=== PATIENT | female | born 1990 | race Caucasian/White ===

== ENCOUNTER → 2016-11-02 | Outpatient (CLI) | payer BC | END | disposition home or self-care (01) | LOC: C.PAPS 16:29 | PROVIDERS: ATTEND Obstetrics & Gynecology | DX: Z01.419 Encounter for gynecological examination (general) (routine) without abnormal findings (principal) ==

== ENCOUNTER 2019-02-16 23:01 | Inpatient (IN) ==
[2019-02-16] MEDS ORDERED: PENICILLIN G POTASSIUM 6 MU in DEXTROSE 5% 250 ML IV STA (23:55)
[2019-02-16] MEDS ORDERED: OXYTOCIN 30 UNITS/500 ML BAG IV PRN (23:55)
--- NOTE | 2019-02-16 23:58 | History & Physical Report ---
Date of Service February 16, 2019 Patient presents in active labor and on arrival states she is leaking fluid contractions are 7-8 out of 10 and are every 4 to 5 minutes apart this is her first baby she is approximately 39 weeks she is group B strep positive otherwise uncomplicated Assessment & Plan (1) Normal labor and delivery: Admit will assume membranes just ruptured recently started on penicillin History of Present Illness Primary Care Provider: NO PCP Allergies Allergy/AdvReac Type Severity Reaction Status Date / Time No Known Allergies Allergy Verified 02/16/19 23:18 Home Medications Home Medications Medication Instructions Recorded Confirmed Type PNV cmb#95-ferrous fumarate-FA 1 tab PO DAILY 02/16/19 02/16/19 History [] Patient History Social History Communication Ability: Effective Patented Hogs[employer]er Required: Yes Beliefs That Will Affect Care: None marital status: Current Living Situation: Spouse Other Information That Helps Us Care for You: No Feels Safe at Home: Yes Safety Concerns: Feels Safe At This Time Smoking Status: Never smoker Hx Alcohol Use: No Hx Substance Use: No Physical Exam Constitutional: WD/WN, vitals as above Respiratory: normal respiratory effort, lungs clear to auscultation Cardiovascular: RRR, no murmur, no edema Genitourinary: OB Exam Abdomen: + vertex Manual OB Exam: + cervical dilation 4 cm, + cervical effacement 90% and + station -2 Copious fluid in the vagina nitrazine positive Results & Data Vital Signs (Past 12 Hours) Vital Signs Pulse BP 02/16/19 23:14 75 130/72
[2019-02-17] MEDS: LACTATED RINGER'S 1,000 ML IV PRN ×3 (00:16→08:09)
[2019-02-17 00:20] LABS: Hematocrit (blood only) 40.4 % (37-47); Hemoglobin 14.1 g/dL (12.0-16.0); Mean Corpuscular Hgb Conc 34.9 g/dL (32-36); Mean Corpuscular Volume 87.1 fL (80-100); Mean Platelet Volume 10.3 fL (7.4-10.4); Platelet Count 293 K/uL (130-400); RDW Coefficient of Variation 13.5 % (11.5-14.5); RDW Standard Deviation 43.1 fL (36.4-46.3); Red Blood Count 4.64 M/uL (4.2-5.4); White Blood Count 15.55 K/uL (4.8-10.8)
[2019-02-17] MEDS ORDERED: fentaNYL citrate 100 MCG/2 ML VIAL ONE (00:26)
[2019-02-17] MEDS ORDERED: ePHEDrine sulfate 50 MG/ML AMP ONE (00:26)
[2019-02-17] MEDS ORDERED: BUPIVACAINE 0.25% 30 ML VIAL ONE (00:26)
[2019-02-17] MEDS ORDERED: fentaNYL 2MCG/ML ROPIV 1.25MG/ML 100 ML BAG EPI ONE (00:27)
--- NOTE | 2019-02-17 00:39 | Anesthesiology Consultation ---
Date of Service February 17, 2019 Assessment & Plan Chart Review Chart Review: Patient NOT seen in Pre Admission Testing and Acceptable Risk for Labor Epidural Consults Requested none ASA ASA2 Proposed Anesthesia Anesthesia Type: Labor Epidural and CSE Risk / Benefits Reviewed With: PT / POA / Parent / Guardian, Accepts Plan and Informed Consent Obtained History Height/Weight Height: 5 ft 3 in Weight: 66.678 kg Allergies Allergy/AdvReac Type Severity Reaction Status Date / Time No Known Allergies Allergy Verified 02/16/19 23:18 Medications Home Medications Medication Instructions Recorded Confirmed Last Taken PNV cmb#95-ferrous fumarate-FA 1 tab PO DAILY 02/16/19 02/16/19 02/16/19 08:00 [] NPO Date Last Intake of Fluids: 02/17/19 Time Last Intake of Fluids: 00:15 Date Last Intake of Solids: 02/16/19 Time Last Intake of Solids: 19:00 Exercise / Class Metabolic Activity II 4-5 Yardwork/Stairs/Walk up hill Past Anesthesia History No Hx of Anesthesia Complications and No Family Hx of Anesthesia Complications History of PONV No Hx of PONV Social History Smoking Status: Never smoker Hx Alcohol Use: No Hx Substance Use: No Review of Systems no chest pain or sob Physical Exam Vital Signs Last Vital Signs Pulse 73 02/17/19 00:37 BP 130/72 02/16/19 23:14 Pulse Ox 99 02/17/19 00:37 RR 16 T 37 ENMT Mouth: no TMJ abnormality Thyromental Distance: > or= 3.5 Finger Breadths Mallampati Class: II Neck normal visual inspection Respiratory normal respiratory effort Auscultation: lungs clear to auscultation bilaterally Cardiovascular Rate/Rhythm: regular rate and regular rhythm Musculoskeletal Spine: normal cervical ROM Neurologic moves all extremities Psychiatric Orientation: alert and oriented x 3
[2019-02-17] MEDS ORDERED: NALBUPHINE HCL INJ 10 MG/ML AMP IV PRN (00:55)
[2019-02-17] MEDS ORDERED: DiphenhydrAMINE HCL 50 MG/ML VIAL IV PRN (00:55)
[2019-02-17] MEDS ORDERED: NALOXONE HCL 0.4 MG/1 ML VIAL/CARP IV PRN (00:55)
[2019-02-17] MEDS ORDERED: ONDANSETRON INJ 2 MG/ML 2 ML VIAL IV PRN (00:55)
[2019-02-17] MEDS ORDERED: fentaNYL 2MCG/ML ROPIV 1.25MG/ML 100 ML BAG EPI PRN (00:55)
[2019-02-17] MEDS ORDERED: NALOXONE HCL 1 MG in SODIUM CHLORIDE 0.9% 1000ML 1,000 ML IV PRN (00:55)
[2019-02-17] MEDS ORDERED: ePHEDrine sulfate 50 MG/ML AMP IV PRN (00:55)
[2019-02-17] MEDS: PENICILLIN G POTASSIUM 3 MU in DEXTROSE 5% 100 ML IV PRN ×2 (04:24→08:05)
--- NOTE | 2019-02-17 07:34 | Obstetrical Progress Note ---
Date of Service Patient comfortable with epidural 7 cm with bulging membranes these were ruptured for clear fluid she is 7 cm -1 station heart rate is category 1 with intermittent early decelerations February 17, 2019 Results & Data Vital Signs (Past 12 Hours) Vital Signs Temp Pulse Resp BP Pulse Ox 02/17/19 07:27 87 96 02/17/19 07:22 80 96 02/17/19 07:20 81 124/60 02/17/19 07:19 73 90 02/17/19 07:18 18 02/17/19 07:17 83 97 02/17/19 07:12 74 97 02/17/19 07:07 74 97 02/17/19 07:04 67 123/74 02/17/19 07:02 83 97 02/17/19 06:57 76 97 02/17/19 06:52 90 96 02/17/19 06:49 89 118/74 02/17/19 06:47 82 97 02/17/19 06:42 78 96 02/17/19 06:37 77 97 02/17/19 06:34 78 118/74 02/17/19 06:32 80 97 02/17/19 06:30 18 02/17/19 06:27 81 97 02/17/19 06:23 89 93 02/17/19 06:22 87 94 02/17/19 06:19 84 114/62 02/17/19 06:17 82 95 02/17/19 06:14 89 94 02/17/19 06:12 85 93 02/17/19 06:08 91 H 94 02/17/19 06:07 95 H 95 02/17/19 06:03 90 107/63 94 02/17/19 06:02 87 95 02/17/19 05:57 86 95 02/17/19 05:52 82 93 02/17/19 05:50 87 94 02/17/19 05:49 86 106/65 02/17/19 05:47 78 94 02/17/19 05:45 90 94 02/17/19 05:42 93 H 95 02/17/19 05:40 79 94 02/17/19 05:37 82 92 02/17/19 05:34 82 114/60 94 02/17/19 05:32 81 93 02/17/19 05:30 37.0 C 18 02/17/19 05:29 85 94 02/17/19 05:27 76 94 02/17/19 05:23 76 94 02/17/19 05:22 77 95 05 05:19 78 123/67 05 05:17 97 H 95 02/17/19 05:12 84 95 02/17/19 05:08 81 94 02/17/19 05:07 74 94 02/17/19 05:04 82 109/63 02/17/19 05:02 74 93 02/17/19 04:57 73 93 02/17/19 04:56 78 94 02/17/19 04:52 83 93 02/17/19 04:51 71 94 02/17/19 04:49 73 105/60 02/17/19 04:47 77 93 02/17/19 04:42 74 93 02/17/19 04:41 75 94 02/17/19 04:37 76 94 02/17/19 04:36 84 94 02/17/19 04:34 68 110/69 02/17/19 04:32 86 94 02/17/19 04:31 75 18 94 02/17/19 04:27 73 95 02/17/19 04:25 78 94 02/17/19 04:22 76 95 02/17/19 04:20 79 94 02/17/19 04:19 73 113/63 02/17/19 04:17 78 96 02/17/19 04:14 88 94 02/17/19 04:12 82 94 02/17/19 04:07 81 94 02/17/19 04:04 80 118/65 02/17/19 04:02 76 94 02/17/19 04:00 80 94 02/17/19 03:57 74 94 02/17/19 03:52 81 94 02/17/19 03:49 78 130/62 05 03:47 81 95 05 03:46 74 93 02/17/19 03:42 79 95 02/17/19 03:41 82 94 02/17/19 03:37 88 95 02/17/19 03:34 86 118/63 02/17/19 03:32 82 93 02/17/19 03:30 36.9 C 18 02/17/19 03:27 77 95 02/17/19 03:22 76 95 02/17/19 03:21 83 94 02/17/19 03:19 72 111/62 02/17/19 03:17 80 95 02/17/19 03:15 77 93 02/17/19 03:12 78 96 02/17/19 03:08 79 94 02/17/19 03:07 82 95 02/17/19 03:05 18 02/17/19 03:04 75 103/60 02/17/19 03:03 78 94 02/17/19 03:02 78 95 02/17/19 02:57 74 96 02/17/19 02:52 89 96 02/17/19 02:49 96 H 100/59 L 02/17/19 02:47 75 93 02/17/19 02:42 74 93 02/17/19 02:37 74 94 02/17/19 02:36 76 94 02/17/19 02:34 76 111/66 02/17/19 02:32 73 93 02/17/19 02:30 78 94 02/17/19 02:27 73 94 02/17/19 02:22 79 93 02/17/19 02:19 72 111/64 02/17/19 02:18 77 94 02/17/19 02:17 77 93 02/17/19 02:12 79 94 02/17/19 02:10 85 94 02/17/19 02:07 86 94 02/17/19 02:05 71 123/76 02/17/19 02:04 73 94 02/17/19 02:02 85 94 02/17/19 01:58 79 94 02/17/19 01:57 75 95 02/17/19 01:52 73 94 02/17/19 01:49 72 123/73 02/17/19 01:47 68 94 02/17/19 01:46 74 94 02/17/19 01:42 80 94 02/17/19 01:39 69 94 02/17/19 01:37 83 94 02/17/19 01:34 87 116/74 02/17/19 01:33 88 94 02/17/19 01:32 80 95 02/17/19 01:30 37.0 C 18 02/17/19 01:28 77 94 02/17/19 01:27 83 95 02/17/19 01:25 18 02/17/19 01:22 73 95 02/17/19 01:20 18 02/17/19 01:19 71 127/77 02/17/19 01:17 83 95 02/17/19 01:15 18 02/17/19 01:12 83 95 02/17/19 01:11 87 94 02/17/19 01:10 18 02/17/19 01:07 83 95 02/17/19 01:06 93 H 94 02/17/19 01:05 18 02/17/19 01:04 74 127/64 02/17/19 01:02 82 93 02/17/19 01:00 83 18 118/76 02/17/19 00:58 102 H 113/63 94 02/17/19 00:57 91 H 94 02/17/19 00:56 76 124/67 02/17/19 00:52 82 95 02/17/19 00:51 81 94 02/17/19 00:49 20 02/17/19 00:47 99 H 86 L 02/17/19 00:46 97 H 92 02/17/19 00:42 91 H 97 02/17/19 00:37 73 99 02/17/19 00:32 70 98 02/16/19 23:45 37.0 C 18 02/16/19 23:14 75 130/72
--- NOTE | 2019-02-17 10:14 | Obstetrical Progress Note ---
Date of Service February 17, 2019 Subjective Patient now fully dilated she has been having early decelerations but heart rate tracing is category 1 at this time +1 cm we will start pushing soon after draining the bladder Results & Data Vital Signs (Past 12 Hours) Vital Signs Temp Pulse Resp BP Pulse Ox 02/17/19 10:07 72 96 02/17/19 10:05 80 119/66 02/17/19 10:02 72 97 02/17/19 09:57 68 96 02/17/19 09:52 75 96 02/17/19 09:49 66 120/72 02/17/19 09:47 79 98 02/17/19 09:42 68 96 02/17/19 09:37 80 97 02/17/19 09:34 70 124/73 02/17/19 09:32 73 96 02/17/19 09:27 74 96 02/17/19 09:26 69 94 02/17/19 09:22 68 94 02/17/19 09:20 71 114/70 02/17/19 09:19 70 93 02/17/19 09:17 78 97 02/17/19 09:14 37.0 C 18 02/17/19 09:12 79 98 02/17/19 09:07 73 96 02/17/19 09:05 78 118/70 02/17/19 09:04 76 94 02/17/19 09:02 82 97 02/17/19 08:57 82 95 02/17/19 08:52 83 95 02/17/19 08:49 80 109/69 02/17/19 08:47 78 95 02/17/19 08:45 84 94 02/17/19 08:42 73 94 02/17/19 08:40 79 94 02/17/19 08:37 72 94 02/17/19 08:34 77 118/61 02/17/19 08:32 74 94 02/17/19 08:31 85 94 02/17/19 08:27 81 95 02/17/19 08:22 78 94 02/17/19 08:19 80 98/65 L 02/17/19 08:17 76 94 02/17/19 08:12 83 94 02/17/19 08:11 76 94 02/17/19 08:07 75 95 02/17/19 08:04 69 116/66 02/17/19 08:03 75 93 02/17/19 08:02 75 95 02/17/19 07:57 85 95 02/17/19 07:52 74 95 02/17/19 07:49 71 120/71 05 07:47 79 94 02/17/19 07:46 80 94 02/17/19 07:42 87 96 02/17/19 07:37 76 96 02/17/19 07:34 80 118/65 94 02/17/19 07:32 76 96 02/17/19 07:27 87 96 02/17/19 07:22 80 96 02/17/19 07:20 81 124/60 02/17/19 07:19 73 90 02/17/19 07:18 18 02/17/19 07:17 83 97 02/17/19 07:12 74 97 02/17/19 07:07 74 97 02/17/19 07:04 67 123/74 02/17/19 07:02 83 97 02/17/19 06:57 76 97 02/17/19 06:52 90 96 02/17/19 06:49 89 118/74 02/17/19 06:47 82 97 02/17/19 06:42 78 96 02/17/19 06:37 77 97 02/17/19 06:34 78 118/74 05 06:32 80 97 02/17/19 06:30 18 02/17/19 06:27 81 97 02/17/19 06:23 89 93 02/17/19 06:22 87 94 02/17/19 06:19 84 114/62 02/17/19 06:17 82 95 02/17/19 06:14 89 94 02/17/19 06:12 85 93 02/17/19 06:08 91 H 94 02/17/19 06:07 95 H 95 02/17/19 06:03 90 107/63 94 02/17/19 06:02 87 95 02/17/19 05:57 86 95 02/17/19 05:52 82 93 02/17/19 05:50 87 94 02/17/19 05:49 86 106/65 05 05:47 78 94 05 05:45 90 94 02/17/19 05:42 93 H 95 02/17/19 05:40 79 94 05 05:37 82 92 02/17/19 05:34 82 114/60 94 02/17/19 05:32 81 93 02/17/19 05:30 37.0 C 18 02/17/19 05:29 85 94 02/17/19 05:27 76 94 02/17/19 05:23 76 94 02/17/19 05:22 77 95 02/17/19 05:19 78 123/67 02/17/19 05:17 97 H 95 02/17/19 05:12 84 95 02/17/19 05:08 81 94 02/17/19 05:07 74 94 02/17/19 05:04 82 109/63 02/17/19 05:02 74 93 02/17/19 04:57 73 93 02/17/19 04:56 78 94 02/17/19 04:52 83 93 02/17/19 04:51 71 94 02/17/19 04:49 73 105/60 02/17/19 04:47 77 93 02/17/19 04:42 74 93 02/17/19 04:41 75 94 02/17/19 04:37 76 94 02/17/19 04:36 84 94 02/17/19 04:34 68 110/69 02/17/19 04:32 86 94 02/17/19 04:31 75 18 94 02/17/19 04:27 73 95 02/17/19 04:25 78 94 02/17/19 04:22 76 95 02/17/19 04:20 79 94 02/17/19 04:19 73 113/63 02/17/19 04:17 78 96 02/17/19 04:14 88 94 02/17/19 04:12 82 94 02/17/19 04:07 81 94 02/17/19 04:04 80 118/65 02/17/19 04:02 76 94 02/17/19 04:00 80 94 02/17/19 03:57 74 94 02/17/19 03:52 81 94 02/17/19 03:49 78 130/62 05 03:47 81 95 02/17/19 03:46 74 93 02/17/19 03:42 79 95 02/17/19 03:41 82 94 05/26/19 03:37 88 95 02/17/19 03:34 86 118/63 02/17/19 03:32 82 93 02/17/19 03:30 36.9 C 18 02/17/19 03:27 77 95 02/17/19 03:22 76 95 02/17/19 03:21 83 94 02/17/19 03:19 72 111/62 02/17/19 03:17 80 95 02/17/19 03:15 77 93 02/17/19 03:12 78 96 02/17/19 03:08 79 94 02/17/19 03:07 82 95 02/17/19 03:05 18 02/17/19 03:04 75 103/60 02/17/19 03:03 78 94 02/17/19 03:02 78 95 02/17/19 02:57 74 96 02/17/19 02:52 89 96 02/17/19 02:49 96 H 100/59 L 02/17/19 02:47 75 93 02/17/19 02:42 74 93 02/17/19 02:37 74 94 02/17/19 02:36 76 94 02/17/19 02:34 76 111/66 02/17/19 02:32 73 93 02/17/19 02:30 78 94 02/17/19 02:27 73 94 02/17/19 02:22 79 93 02/17/19 02:19 72 111/64 02/17/19 02:18 77 94 02/17/19 02:17 77 93 02/17/19 02:12 79 94 02/17/19 02:10 85 94 02/17/19 02:07 86 94 02/17/19 02:05 71 123/76 02/17/19 02:04 73 94 02/17/19 02:02 85 94 02/17/19 01:58 79 94 02/17/19 01:57 75 95 02/17/19 01:52 73 94 02/17/19 01:49 72 123/73 02/17/19 01:47 68 94 02/17/19 01:46 74 94 02/17/19 01:42 80 94 02/17/19 01:39 69 94 02/17/19 01:37 83 94 02/17/19 01:34 87 116/74 02/17/19 01:33 88 94 02/17/19 01:32 80 95 02/17/19 01:30 37.0 C 18 02/17/19 01:28 77 94 02/17/19 01:27 83 95 02/17/19 01:25 18 02/17/19 01:22 73 95 02/17/19 01:20 18 02/17/19 01:19 71 127/77 02/17/19 01:17 83 95 02/17/19 01:15 18 02/17/19 01:12 83 95 02/17/19 01:11 87 94 02/17/19 01:10 18 02/17/19 01:07 83 95 02/17/19 01:06 93 H 94 02/17/19 01:05 18 02/17/19 01:04 74 127/64 02/17/19 01:02 82 93 02/17/19 01:00 83 18 118/76 02/17/19 00:58 102 H 113/63 94 02/17/19 00:57 91 H 94 02/17/19 00:56 76 124/67 02/17/19 00:52 82 95 02/17/19 00:51 81 94 02/17/19 00:49 20 02/17/19 00:47 99 H 86 L 02/17/19 00:46 97 H 92 02/17/19 00:42 91 H 97 02/17/19 00:37 73 99 02/17/19 00:32 70 98 02/16/19 23:45 37.0 C 18 02/16/19 23:14 75 130/72
--- NOTE | 2019-02-17 11:16 | Procedure Note ---
Vaginal Delivery Summary Date of Service February 17, 2019 Patient delivered in occiput anterior position fluid clear there was a loose nuchal cord x1 which is easily passed over the head second-degree tear occurred baby's mouth and then nares suctioned baby vigorous live vigorous male gentle traction use no excessive force. Cord clamped and cut cord gases obtained cord blood obtained placenta removed with traction IV Pitocin started second-degree tear repaired with 3-0 Vicryl sponge and instrument counts correct estimated blood loss 250 mL rectal exam negative for sutures or defects
[2019-02-17] MEDS ORDERED: BISACODYL 10 MG SUPP PR PRN (11:28)
[2019-02-17] MEDS ORDERED: ACETAMINOPHEN 325 MG TAB PO PRN (11:28)
[2019-02-17] MEDS ORDERED: OXYTOCIN 30 UNITS/500 ML BAG IV PRN (11:28)
[2019-02-17] MEDS ORDERED: OXYCODONE/ACETAMINOPHEN 5mg/325mg TAB PO PRN (11:28)
[2019-02-17] MEDS ORDERED: DIPHTHERIA/TETANUS/PERTUSSIS 0.5 ML SYR/VIAL IM ONE (11:28)
[2019-02-17] MEDS ORDERED: BENZOCAINE 20% AER SPR 82.5 GM CAN EXT PRN (11:28)
[2019-02-17] MEDS ORDERED: SUPERCREAM 0.870% 15 GM JAR EXT PRN (11:28)
[2019-02-17] MEDS ORDERED: HYDROCORTISONE ACETATE 25 MG SUPP PR PRN (11:28)
[2019-02-17 11:37] LABS: Base Excess Cord Venous Blood -4.7 mEq/L (-7.7-1.9); Cord Venous Blood HCO3 20 mmol/L (18.4-26.8); Cord Venous Blood PCO2 37 mmHg (30.4-57.2); Cord Venous Blood PO2 23 mmHg (14.1-43.3); Cord Venous Blood pH 7.36 (7.20-7.44)
[2019-02-17 11:42] LABS: Base Excess Cord Arterial Bld -4.2 mEq/L (-9-1.8); CO2 Cord Arterial Blood 44 mmHg (39.1-73.5); HCO3 Cord Arterial Blood 22 mmol/L (19.7-28.5); pH Cord Arterial Blood 7.31 (7.1-7.38)
[2019-02-17 11:43] LABS: O2 Saturation Cord Venous Bld < 60.0 % (<68)
--- NOTE | 2019-02-17 12:54 | Anesthesia Procedure Note ---
Date of Service February 17, 2019 Anesthesia Post Epidural Note Vital Signs Vital Signs: Temp Pulse Resp BP Pulse Ox 02/17/19 12:49 77 112/57 L 02/17/19 12:34 78 125/57 L 02/17/19 12:19 77 119/56 L 02/17/19 12:05 18 02/17/19 11:49 82 116/58 L 02/17/19 11:45 18 02/17/19 11:34 82 119/63 02/17/19 11:30 18 02/17/19 11:19 92 H 119/54 L 02/17/19 11:15 18 02/17/19 11:04 83 119/59 L 02/17/19 10:57 96 H 92 02/17/19 10:56 20 02/17/19 10:52 84 94 02/17/19 10:50 75 122/60 02/17/19 10:47 78 94 02/17/19 10:42 75 94 02/17/19 10:37 77 96 02/17/19 10:35 73 129/70 02/17/19 10:32 76 96 02/17/19 10:31 89 88 L 02/17/19 10:27 76 97 02/17/19 10:23 78 89 L 02/17/19 10:22 78 98 02/17/19 10:19 75 122/66 02/17/19 10:17 69 98 02/17/19 10:12 68 98 02/17/19 10:07 72 96 02/17/19 10:05 80 119/66 02/17/19 10:02 72 97 02/17/19 09:57 68 96 02/17/19 09:52 75 96 02/17/19 09:49 66 120/72 02/17/19 09:47 79 98 02/17/19 09:42 68 96 02/17/19 09:37 80 97 02/17/19 09:34 70 124/73 02/17/19 09:32 73 96 02/17/19 09:27 74 96 02/17/19 09:26 69 94 02/17/19 09:22 68 94 02/17/19 09:20 71 114/70 02/17/19 09:19 70 93 02/17/19 09:17 78 97 05/26/19 09:14 37.0 C 18 05/26/19 09:12 79 98 02/17/19 09:07 73 96 02/17/19 09:05 78 118/70 02/17/19 09:04 76 94 02/17/19 09:02 82 97 02/17/19 08:57 82 95 02/17/19 08:52 83 95 02/17/19 08:49 80 109/69 02/17/19 08:47 78 95 02/17/19 08:45 84 94 02/17/19 08:42 73 94 02/17/19 08:40 79 94 02/17/19 08:37 72 94 02/17/19 08:34 77 118/61 02/17/19 08:32 74 94 02/17/19 08:31 85 94 02/17/19 08:27 81 95 02/17/19 08:22 78 94 02/17/19 08:19 80 98/65 L 02/17/19 08:17 76 94 02/17/19 08:12 83 94 02/17/19 08:11 76 94 02/17/19 08:07 75 95 02/17/19 08:04 69 116/66 02/17/19 08:03 75 93 02/17/19 08:02 75 95 02/17/19 07:57 85 95 02/17/19 07:52 74 95 02/17/19 07:49 71 120/71 02/17/19 07:47 79 94 02/17/19 07:46 80 94 02/17/19 07:42 87 96 02/17/19 07:37 76 96 02/17/19 07:34 80 118/65 94 02/17/19 07:32 76 96 02/17/19 07:27 87 96 02/17/19 07:22 80 96 02/17/19 07:20 81 124/60 05 07:19 73 90 02/17/19 07:18 18 02/17/19 07:17 83 97 02/17/19 07:12 74 97 02/17/19 07:07 74 97 02/17/19 07:04 67 123/74 05 07:02 83 97 02/17/19 06:57 76 97 02/17/19 06:52 90 96 02/17/19 06:49 89 118/74 02/17/19 06:47 82 97 02/17/19 06:42 78 96 02/17/19 06:37 77 97 02/17/19 06:34 78 118/74 02/17/19 06:32 80 97 02/17/19 06:30 18 02/17/19 06:27 81 97 02/17/19 06:23 89 93 02/17/19 06:22 87 94 02/17/19 06:19 84 114/62 02/17/19 06:17 82 95 02/17/19 06:14 89 94 02/17/19 06:12 85 93 02/17/19 06:08 91 H 94 02/17/19 06:07 95 H 95 02/17/19 06:03 90 107/63 94 02/17/19 06:02 87 95 02/17/19 05:57 86 95 02/17/19 05:52 82 93 02/17/19 05:50 87 94 02/17/19 05:49 86 106/65 02/17/19 05:47 78 94 02/17/19 05:45 90 94 02/17/19 05:42 93 H 95 02/17/19 05:40 79 94 02/17/19 05:37 82 92 02/17/19 05:34 82 114/60 94 02/17/19 05:32 81 93 02/17/19 05:30 37.0 C 18 02/17/19 05:29 85 94 02/17/19 05:27 76 94 02/17/19 05:23 76 94 02/17/19 05:22 77 95 02/17/19 05:19 78 123/67 02/17/19 05:17 97 H 95 02/17/19 05:12 84 95 02/17/19 05:08 81 94 02/17/19 05:07 74 94 02/17/19 05:04 82 109/63 02/17/19 05:02 74 93 02/17/19 04:57 73 93 02/17/19 04:56 78 94 02/17/19 04:52 83 93 02/17/19 04:51 71 94 02/17/19 04:49 73 105/60 02/17/19 04:47 77 93 02/17/19 04:42 74 93 02/17/19 04:41 75 94 02/17/19 04:37 76 94 02/17/19 04:36 84 94 02/17/19 04:34 68 110/69 02/17/19 04:32 86 94 02/17/19 04:31 75 18 94 02/17/19 04:27 73 95 02/17/19 04:25 78 94 02/17/19 04:22 76 95 02/17/19 04:20 79 94 02/17/19 04:19 73 113/63 02/17/19 04:17 78 96 02/17/19 04:14 88 94 02/17/19 04:12 82 94 02/17/19 04:07 81 94 02/17/19 04:04 80 118/65 02/17/19 04:02 76 94 02/17/19 04:00 80 94 02/17/19 03:57 74 94 02/17/19 03:52 81 94 02/17/19 03:49 78 130/62 02/17/19 03:47 81 95 02/17/19 03:46 74 93 02/17/19 03:42 79 95 02/17/19 03:41 82 94 02/17/19 03:37 88 95 02/17/19 03:34 86 118/63 02/17/19 03:32 82 93 02/17/19 03:30 36.9 C 18 02/17/19 03:27 77 95 02/17/19 03:22 76 95 02/17/19 03:21 83 94 02/17/19 03:19 72 111/62 02/17/19 03:17 80 95 02/17/19 03:15 77 93 02/17/19 03:12 78 96 02/17/19 03:08 79 94 02/17/19 03:07 82 95 02/17/19 03:05 18 02/17/19 03:04 75 103/60 02/17/19 03:03 78 94 02/17/19 03:02 78 95 02/17/19 02:57 74 96 02/17/19 02:52 89 96 02/17/19 02:49 96 H 100/59 L 02/17/19 02:47 75 93 02/17/19 02:42 74 93 02/17/19 02:37 74 94 02/17/19 02:36 76 94 02/17/19 02:34 76 111/66 02/17/19 02:32 73 93 02/17/19 02:30 78 94 02/17/19 02:27 73 94 02/17/19 02:22 79 93 02/17/19 02:19 72 111/64 02/17/19 02:18 77 94 02/17/19 02:17 77 93 02/17/19 02:12 79 94 02/17/19 02:10 85 94 02/17/19 02:07 86 94 02/17/19 02:05 71 123/76 02/17/19 02:04 73 94 02/17/19 02:02 85 94 02/17/19 01:58 79 94 02/17/19 01:57 75 95 02/17/19 01:52 73 94 02/17/19 01:49 72 123/73 02/17/19 01:47 68 94 02/17/19 01:46 74 94 02/17/19 01:42 80 94 02/17/19 01:39 69 94 02/17/19 01:37 83 94 02/17/19 01:34 87 116/74 02/17/19 01:33 88 94 02/17/19 01:32 80 95 02/17/19 01:30 37.0 C 18 02/17/19 01:28 77 94 02/17/19 01:27 83 95 02/17/19 01:25 18 02/17/19 01:22 73 95 02/17/19 01:20 18 02/17/19 01:19 71 127/77 02/17/19 01:17 83 95 02/17/19 01:15 18 02/17/19 01:12 83 95 02/17/19 01:11 87 94 02/17/19 01:10 18 02/17/19 01:07 83 95 02/17/19 01:06 93 H 94 02/17/19 01:05 18 02/17/19 01:04 74 127/64 02/17/19 01:02 82 93 02/17/19 01:00 83 18 118/76 02/17/19 00:58 102 H 113/63 94 02/17/19 00:57 91 H 94 02/17/19 00:56 76 124/67 05/26/19 00:52 82 95 02/17/19 00:51 81 94 02/17/19 00:49 20 02/17/19 00:47 99 H 86 L 02/17/19 00:46 97 H 92 02/17/19 00:42 91 H 97 02/17/19 00:37 73 99 02/17/19 00:32 70 98 02/16/19 23:45 37.0 C 18 02/16/19 23:14 75 130/72 Notes Mental Status: alert / awake / arousable Patient Amnestic to Procedure: Yes Nausea / Vomiting: adequately controlled Pain: adequately controlled Airway Patency, RR, SpO2: stable & adequate BP & HR: stable & adequate Hydration State: stable & adequate Neuraxial Anesthesia: was administered and sensory block is resolving Anesthetic Complications: no major complications apparent and Pt Satisfied with anesthetic care Epidural: Removed without complications and With tip intact
[2019-02-17] MEDS: IBUPROFEN 600 MG TAB PO PRN ×2 (15:51→23:27)
[2019-02-17] MEDS: DOCUSATE SODIUM 100 MG CAP PO SCH (19:44)
[2019-02-18] MEDS: IBUPROFEN 600 MG TAB PO PRN ×4 (04:22→19:14)
[2019-02-18 07:05] LABS: Hematocrit (blood only) 35.5 % (37-47); Hemoglobin 12.3 g/dL (12.0-16.0); Mean Corpuscular Hgb Conc 34.6 g/dL (32-36); Mean Corpuscular Volume 89.4 fL (80-100); Mean Platelet Volume 10.7 fL (7.4-10.4); Platelet Count 260 K/uL (130-400); RDW Coefficient of Variation 13.7 % (11.5-14.5); RDW Standard Deviation 44.8 fL (36.4-46.3); Red Blood Count 3.97 M/uL (4.2-5.4); White Blood Count 15.46 K/uL (4.8-10.8)
--- NOTE | 2019-02-18 07:19 | Obstetrical Progress Note ---
Date of Service <Get Bourne MD - Last Filed: 02/18/19 07:19> February 18, 2019 Assessment & Plan <Get Bourne MD - Last Filed: 02/18/19 07:19> (1) (spontaneous vaginal delivery): 28 year old day 1 s/p at 40 weeks and 5 days Vital Signs Reviewed and WNL Pain well controlled Hemoglobin 14.1 pre delivery pending post delivery Blood type O+, GBS + (Received Penicillin), Rubella Immune Patient ambulating and breast feeding well Subjective <Get Bourne MD - Last Filed: 02/18/19 07:19> Ambulation: ambulating normally Voiding: no voiding problems Passing Gas:: Yes Diet Tolerance:: regular diet Lochia:: Small Feeding Type:: breast feeding Current Pain Level(1-10): 4 Ms. Weller is doing very well this morning, no issues or concerns. Ambulating well using bathroom without difficulty. Constitutional: no fever and no chills Respiratory: no cough and no dyspnea Cardiovascular: no chest pain, no dyspnea and no calf pain Gastrointestinal: no nausea and no vomiting Physical Exam <Get Bourne MD - Last Filed: 02/18/19 07:19> Vital Signs (Past 24 Hours) Last Vital Signs Temp 36.5 C 02/18/19 03:10 Pulse 74 02/18/19 03:10 Resp 16 02/18/19 03:10 BP 100/63 02/18/19 03:10 Pulse Ox 97 02/18/19 03:10 Constitutional well developed, well nourished, cooperative and comfortable Respiratory normal respiratory effort, lungs clear to auscultation Cardiovascular Rate/Rhythm: regular rate and regular rhythm Heart Sounds: no click, no gallop, no murmur and no cardiac rub Extremities: no calf tenderness Gastrointestinal (Abdomen) Percussion/Palpation: abdomen soft; abdomen nontender Genitourinary OB Exam Abdomen: + fundal height (Firm, non tender at level of umbilicus) <Garcia Lam MD, FACOG - Last Filed: 02/18/19 07:20> Co-Signing Physician Notes Resident Physician Supervision Note: I was present with [Name of resident] during the history and exam. I discussed the case with the resident and agree with the findings and plan as documented in the note. Any exceptions or clarifications are listed here: [None] Documented By: Garcia Lam MD, FACOG Resident Activity Tracking <Get Bourne MD - Last Filed: 02/18/19 07:19> Resident Involvement: Resident Care Provided Care Provided: OB Delivery
[2019-02-18] MEDS: PRENATAL VITAMIN 1 TAB PO SCH (08:21)
[2019-02-18] MEDS: DOCUSATE SODIUM 100 MG CAP PO SCH ×2 (08:21→20:35)
[2019-02-18] MEDS ORDERED: NON-FORMULARY MEDICATION (Pnv Cmb#95-Ferrous Fumarate-Fa [Prenatal] 1 TAB) PO SCH (09:00)
[2019-02-18] MEDS ORDERED: BISACODYL 5 MG TABEC PO SCH (20:00)
[2019-02-19] MEDS: IBUPROFEN 600 MG TAB PO PRN (03:47)
[2019-02-19 06:52] LABS: Hematocrit (blood only) 38.9 % (37-47); Hemoglobin 13.3 g/dL (12.0-16.0)
--- NOTE | 2019-02-19 06:52 | Obstetrical Progress Note ---
Date of Service <Get Bourne MD - Last Filed: 02/19/19 06:52> February 19, 2019 Assessment & Plan <Get Bourne MD - Last Filed: 02/19/19 06:52> (1) (spontaneous vaginal delivery): 28 year old day 2 s/p at 40 weeks and 5 days Vital Signs Reviewed and WNL Pain well controlled Hemoglobin 12.3 Blood type O+, GBS + (Received Penicillin), Rubella Immune Patient ambulating and breast feeding well Discussed discharge instructions with patient. Subjective <Get Bourne MD - Last Filed: 02/19/19 06:52> Ambulation: ambulating normally Voiding: no voiding problems Passing Gas:: Yes Diet Tolerance:: regular diet Lochia:: Small Feeding Type:: breast feeding Current Pain Level(1-10): 2 Ms. Weller is doing well, scarcely has spent any time in bed, has been walking around and in very little pain since yesterday. She expresses her readiness to return home today. Constitutional: no fever and no chills Respiratory: no cough and no dyspnea Cardiovascular: no chest pain, no dyspnea and no calf pain Gastrointestinal: no abdominal pain, no nausea and no vomiting Physical Exam <Get Bourne MD - Last Filed: 02/19/19 06:52> Vital Signs (Past 24 Hours) Last Vital Signs Temp 36.5 C 02/18/19 23:00 Pulse 69 02/18/19 23:00 Resp 18 02/18/19 23:00 BP 110/71 02/18/19 23:00 Pulse Ox 97 02/18/19 03:10 Constitutional well developed, well nourished, cooperative and comfortable Respiratory normal respiratory effort, lungs clear to auscultation Cardiovascular Rate/Rhythm: regular rate and regular rhythm Heart Sounds: no click, no gallop, no murmur and no cardiac rub Extremities: no calf tenderness Gastrointestinal (Abdomen) Percussion/Palpation: abdomen soft; abdomen nontender Genitourinary OB Exam Abdomen: + fundal height (Firm, non tender 1 cm below umbilicus) <Alicia Trujillo MD, FACOG - Last Filed: 02/19/19 08:25> Co-Signing Physician Notes Resident Physician Supervision Note: I interviewed and examined the patient. Discussed with Dr. Get Bourne and agree with findings and plan as documented in the note. Any exceptions or clarifications are listed here: [None] Documented By: Alicia Trujillo MD, FACOG Resident Activity Tracking <Get Bourne MD - Last Filed: 02/19/19 06:52> Resident Involvement: Resident Care Provided Care Provided: OB Delivery
[2019-02-19] MEDS: DOCUSATE SODIUM 100 MG CAP PO SCH (08:53)
[2019-02-19] MEDS: PRENATAL VITAMIN 1 TAB PO SCH (08:53)
== END 2019-02-19 13:10 | disposition home or self-care (01) | DRG 807 ==
LOC: OPB 23:01 → 4S1 23:03 → 4S2 02-17 14:30

== ENCOUNTER 2024-12-21 20:53 | Inpatient (IN) ==
[2024-12-21] MEDS: LACTATED RINGER'S 1,000 ML IV PRN (21:30)
[2024-12-21] MEDS ORDERED: LIDOCAINE 1% LOCAL 20 ML VIAL INFIL PRN (21:35)
[2024-12-21] MEDS ORDERED: OXYTOCIN 30 UNITS/NSS 30 UNITS/500 ML BAG IV PRN (21:35)
--- NOTE | 2024-12-21 21:42 | History & Physical Report ---
Date of Service December 21, 2024 Assessment & Plan (1) Supervision of elderly multigravida, antepartum: Plan: 34 yo at 39 6/7 wga presents in labor VSS Fetus cat 1 Labor - expectant management GBS+, pcn ordered desires epidural History of Present Illness Chief Complaint: 34 yo at 39 6/7 wga presents w/ ctx. Denies LOF, VB. +FM PNI: GBS+ ama Past success coach hx: G1 sab G2 2019 regular cycles denies hx stis Primary Care Provider: Tanya Castañeda MD Allergies Allergy/AdvReac Type Severity Reaction Status Date / Time No Known Drug Allergies Allergy Unknown Verified 12/17/24 15:07 Home Medications Medication Instructions Recorded Confirmed Type [id number] oil PO 05/08/24 12/17/24 History [ Gummy] albuterol sulfate 90 mcg/actuation 2 inh inhalation QID PRN shortness 09/02/24 12/17/24 Rx aerosol inhaler of breath or wheezing #8.5 grams Patient History Medical History HPV (human papilloma virus) infection Tinnitus of right ear Sensorineural hearing loss of both ears Vaginismus Dyspareunia in female History of chicken pox Surgical History S/P wisdom tooth extraction Family History Sister Diabetes Mother No problems noted. Father No problems noted. Brother No problems noted. Son No problems noted. Grandfather No problems noted. Grandmother Diabetes Denies family history of Ovarian cancer Breast cancer Colorectal cancer Uterine cancer Social History Smoking Status: Never smoker Second Hand Exposure: No; Do You Dip or Chew Tobacco: No; Hx Alcohol Use: No Hx Substance Use: No Preferred Language: Guatemalan Communication Ability: Effective Visual Impairment: No Limitations Hearing Ability: Normal Easement Worker Required: No Beliefs That Will Affect Care: None marital status: marital status details: Osmin Weller (38) [phone] Current Living Situation: Spouse and Family Current Living Situation Comment: Lives with and son current occupational status: employed current occupation: Community Worker- [employer] Other Information That Helps Us Care for You: No Feels Safe at Home: Yes Safety Concerns: Feels Safe At This Time Childhood Exposure to Second-Hand Smoke: No Diet: regular caffeine: Yes Dental Care, Regularly: Yes Physical Activity Frequency: Does not Exercise Seatbelt Use: always Sunscreen Use: Yes Assistive Devices: None Physical Exam Genitourinary: OB Exam Abdomen: + vertex Manual OB Exam: + cervical dilation 5 cm, + cervical effacement 50% and + station -2 OB Exam Monitor Tracing: + external FHT monitor used, + external uterine monitor used (q3-4) and + category I (140/mod/+accel/-decel) Results & Data Vital Signs (Past 12 Hours) Vital Signs Temp Pulse Resp BP 12/21/24 21:12 98.1 F 18 12/21/24 21:10 82 124/69 Laboratory Results OB Labs: Blood Type O Positive 05/15/24 Antibody Screen NEGATIVE 05/15/24 Hgb 13.0 g/dl (12.0-16.0) 10/01/24 Hct 38.1 % (37.0-47.0) 10/01/24 MCV 89.0 fL (80.0-100.0) 05/15/24 Plt Count 381 K/uL (130-400) 05/15/24 Rubella IgG Antibody Immune (Immune) 05/15/24 RPR Nonreactive (Nonreactive) 07/03/18 Treponema pallidum Ab Negative (Negative) 10/01/24 Hep Bs Antigen Negative (Negative) 05/15/24 Hepatitis C Antibody Negative (Negative) 05/15/24 HIV 1&2 Ab/P24 Ag 4thGn Negative (Negative) 05/15/24 Glucose 1 Hr 50 gm 128 mg/dl (70-130) 10/01/24 OB Optional Labs: Chlamydia trachomatis RNA Not Detected (NotDetected) 05/15/24 Neisseria gonorrhoeae RNA Not Detected (NotDetected) 05/15/24 Labs Reviewed: sma and cf negative 2018 Declines cfdna--mln GBS+ Diagnostic Findings ant plac Coding Level of Care Code None Diagnoses Supervision of elderly multigravida, antepartum O09.529
[2024-12-21 22:02] LABS: Hematocrit (blood only) 40.8 % (37.0-47.0); Hemoglobin 14.2 g/dl (12.0-16.0); Mean Corpuscular Hemoglobin 30.6 pg (25.0-34.0); Mean Corpuscular Hgb Conc 34.8 g/dL (32.0-36.0); Mean Corpuscular Volume 87.9 fL (80.0-100.0); Mean Platelet Volume 10.5 fL (9.4-12.4); Platelet Count 253 K/uL (130-400); RDW Coefficient of Variation 13.5 % (11.5-14.5); RDW Standard Deviation 43.5 fL (36.4-46.3); Red Blood Count 4.64 M/uL (4.20-5.40); White Blood Count 15.58 K/ul (4.8-10.8)
[2024-12-21] MEDS: PENICILLIN GK 6 MU in DEXTROSE 5% 250 ML IV STA (22:10)
[2024-12-21] MEDS: BUPIVACAINE 0.25% PF 30 ML VIAL ONE (22:47)
[2024-12-21] MEDS: SODIUM CHLORIDE 0.9% PF INJ 10 ML VIAL ONE (22:47)
[2024-12-21] MEDS: fentANYL 2 MCG/ML BUPIVacaine 0.125%-NSS 100ML BAG ONE (22:48)
[2024-12-21] MEDS ORDERED: SODIUM CHLORIDE 0.9% PF INJ 10 ML VIAL EPI PRN (22:56)
[2024-12-21] MEDS ORDERED: ePHEDrine sulfate 50 MG/ML AMP IV PRN (22:56)
[2024-12-21] MEDS ORDERED: BUPIVACAINE 0.25% PF 30 ML VIAL EPI PRN (22:56)
[2024-12-21] MEDS ORDERED: PROMETHAZINE 6.25 MG/50.25 ML BAG IV PRN (22:56)
[2024-12-21] MEDS ORDERED: NALOXONE HCL 1 MG in SODIUM CHLORIDE 0.9% 1,000 ML IV PRN (22:56)
[2024-12-21] MEDS ORDERED: fentaNYL citrate PF 100 MCG/2 ML VIAL EPI PRN (22:56)
[2024-12-21] MEDS ORDERED: fentANYL 2 MCG/ML BUPIVacaine 0.125%-NSS 100ML BAG EPI PRN (22:56)
[2024-12-21] MEDS ORDERED: NALOXONE HCL 0.4 MG/1 ML VIAL/CARP IV PRN (22:56)
[2024-12-21] MEDS ORDERED: LIDOCAINE 2% MPF LOCAL 5 ML VIAL EPI PRN (22:56)
[2024-12-21] MEDS ORDERED: ROPIVACAINE 0.5% PF 5 MG/ML 20 ML VIAL EPI PRN (22:56)
[2024-12-21] MEDS ORDERED: ONDANSETRON INJ 2 MG/ML 2 ML VIAL IV PRN (22:56)
[2024-12-21] MEDS ORDERED: NALBUPHINE HCL INJ 10 MG/ML AMP IV PRN (22:56)
[2024-12-21] MEDS ORDERED: diphenhydrAMINE 50 MG/ML VIAL IV PRN (22:56)
--- NOTE | 2024-12-22 00:44 | Labor Progress Brief Note ---
Date of Service December 22, 2024 Subjective called by nursing due to decel Assessment & Plan (1) Supervision of elderly multigravida, antepartum: Plan: 34 yo at 39 6/7 wga presents in labor VSS EFM 130-135/mod/+accels/intemit variables > with repositioning, variable decels worsened but did not improve with positioning by nursing and I was called and presented immediately. As I arrived, could hear fht improving to 100s-110s. Approx 6min long decel prior. SVE was 7-8 with bulging bag so arom was performed so FSE could be applied, meconium fluid noted. Additional repositioning was performed following and did improve to 140/mod/early and intermit variable noted. Will continue to monitor closely Admission and Anticipated Discharge Date Admission Date: December 21, 2024 Physical Exam Genitourinary: Manual OB Exam: + cervical dilation (7-8), + cervical effacement 80%, + station -1 and 0 and + amniotic fluid (arom mec) OB Exam Monitor Tracing: + scalp electrode used (FSE placed), + external uterine monitor used (q3-4) and + category II Results & Data Vital Signs (Past 12 Hours) Vital Signs Temp Pulse Resp BP Pulse Ox 12/22/24 00:33 79 114/70 12/22/24 00:30 97 H 97 12/22/24 00:25 79 98 12/22/24 00:20 95 H 98 12/22/24 00:18 74 112/56 L 12/22/24 00:15 82 97 12/22/24 00:10 75 98 12/22/24 00:08 71 112/66 12/22/24 00:05 78 12/22/24 00:05 79 108/63 97 12/22/24 00:00 69 95 12/21/24 23:58 73 93 12/21/24 23:55 80 97 12/21/24 23:50 75 98 12/21/24 23:48 90 106/55 L 12/21/24 23:45 80 97 12/21/24 23:40 87 97 12/21/24 23:35 83 97 12/21/24 23:33 78 116/62 12/21/24 23:30 80 18 96 12/21/24 23:25 88 18 97 12/21/24 23:20 89 98 12/21/24 23:18 85 120/56 L 12/21/24 23:15 86 96 12/21/24 23:10 90 18 96 12/21/24 23:05 93 H 100/62 96 12/21/24 23:03 18 12/21/24 23:03 18 12/21/24 23:00 86 112/56 L 97 12/21/24 22:59 18 12/21/24 22:59 18 12/21/24 22:58 88 116/53 L 12/21/24 22:56 80 125/65 12/21/24 22:55 89 18 98 12/21/24 22:54 88 111/60 12/21/24 22:52 74 127/59 L 12/21/24 22:50 99 12/21/24 22:50 83 12/21/24 22:50 86 18 122/59 L 12/21/24 22:47 86 121/58 L 12/21/24 22:45 88 99 12/21/24 22:41 105 H 90 12/21/24 22:40 92 H 99 12/21/24 22:35 81 97 12/21/24 22:30 80 97 12/21/24 22:25 75 99 12/21/24 22:20 73 100 12/21/24 21:12 98.1 F 18 12/21/24 21:10 82 124/69 Coding Level of Care Code None Diagnoses Supervision of elderly multigravida, antepartum O09.529
[2024-12-22] MEDS: LIDOCAINE 2%/EPINEPHRINE 1:200,000 20 ML PF ONE (00:57)
[2024-12-22] MEDS: fentaNYL citrate PF 100 MCG/2 ML VIAL ONE (00:57)
[2024-12-22] MEDS: ePHEDrine sulfate 50 MG/ML AMP ONE (00:57)
[2024-12-22] MEDS: BUPIVACAINE 0.25% PF 30 ML VIAL EPI STA (00:57)
[2024-12-22] MEDS: SODIUM CHLORIDE 0.9% PF INJ 10 ML VIAL EPI STA (00:58)
[2024-12-22] MEDS: LIDOCAINE 2%/EPINEPHRINE 1:200,000 20 ML PF EPI STA (00:58)
[2024-12-22] MEDS: fentaNYL citrate PF 100 MCG/2 ML VIAL EPI STA (00:58)
[2024-12-22] MEDS: PENICILLIN GK 3 MU in DEXTROSE 5% 100 ML IV PRN (01:42)
[2024-12-22] MEDS: OXYTOCIN 30 UNITS/NSS 30 UNITS/500 ML BAG IV PRN (03:09)
--- NOTE | 2024-12-22 04:50 | Delivery Summary ---
Vaginal Delivery Summary Date of Service December 22, 2024 Vaginal Delivery Summary and 2nd Degree LAC PREOPERATIVE DIAGNOSIS: 1. Single intrauterine at 40 wga 2. Labor 3. GBS+ 4. AMA POSTOPERATIVE DIAGNOSIS: 1. Single intrauterine at 40 wga 2. Labor 3. GBS+ 4. AMA 5. Delivered PROCEDURE: 1. Normal spontaneous vaginal delivery. SURGEON: Anisha Garcia MD ANESTHESIA: Epidural. QUANTITATIVE BLOOD LOSS: 7 mL FLUIDS: Continuous LR. URINE OUTPUT: None. COMPLICATIONS: None. CONDITION: Stable. INDICATIONS: 34 yo at 40 wga presented with contractions and was 5cm. She was admitted and received an epidural for pain control. decel occurred and so maneuvers were used to resuscitate, as well as arom for meconium fluid and FSE placement which resolved it. Following recovery, pitocin was started due to contractions spacing and she progressed to complete and desired to push FINDINGS: A viable male , weight pending with Apgars of 8 and 9 at 1 and 5 minutes respectively. Copious meconium fluid, true knot seen in cord SPECIMEN: Cord blood OPERATIVE REPORT: The patient progressed to 10 cm, 100% effaced and +2 station, pushed over intact perineum with anesthesia to deliver a viable male infant, weight and Apgars as above. Head of delivered in MARILYN position. No nuchal cord was present. Body and shoulders were delivered without difficulty. was delivered to maternal abdomen and nursing staff. Delayed cord clamping was performed for 60 seconds. Cord was clamped and cut. Cord blood was obtained. Placenta delivered spontaneously intact with 3-vessel cord and true knot. IV oxytocin and fundal massage were given for excellent hemostasis. Vagina, cervix, perineum, and placenta were inspected. A second degree laceration was repaired using 3-0 vicryl. There was excellent hemostasis. Sponge and needle counts c orrect x2. No sponges were left behind. Mother and stable in immediate period. [facility] Vaginal Delivery Charge Vaginal Delivery Codes: 53727 global code for the antepartum, delivery, and post- Delivery Type Details: and 2nd Degree LAC
[2024-12-22] MEDS ORDERED: OXYTOCIN 30 UNITS/NSS 30 UNITS/500 ML BAG IV PRN (05:01)
[2024-12-22] MEDS ORDERED: HYDROCORTISONE ACETATE 25 MG SUPP PR PRN (05:01)
--- NOTE | 2024-12-22 07:35 | Anesthesia Procedure Note ---
Date of Service December 22, 2024 Anesthesia Post Epidural Note Vital Signs Vital Signs: Temp Pulse Resp BP Pulse Ox 36.6 C 88 18 123/57 L 97 12/22/24 00:13 12/22/24 07:05 12/22/24 06:45 12/22/24 07:05 12/22/24 04:46 Notes Mental Status: alert / awake / arousable and participated in evaluation Nausea / Vomiting: adequately controlled Pain: adequately controlled Airway Patency, RR, SpO2: stable & adequate BP & HR: stable & adequate Hydration State: stable & adequate Neuraxial Anesthesia: was administered and sensory block is resolving Anesthetic Complications: no major complications apparent Epidural: Removed without complications and With tip intact
[2024-12-22] MEDS: DOCUSATE SODIUM 100 MG CAP PO SCH (07:59)
[2024-12-22] MEDS: PRENATAL VITAMIN 1 TAB PO SCH (07:59)
[2024-12-22] MEDS: BENZOCAINE 20% SPRY 85 APPLN/85 GM CAN EXT PRN (07:59)
[2024-12-22] MEDS: DIPHTHER/TETAN/PERTUS Vaccine (Tdap, Adol/Adult) 0.5mL IM ONE (08:32)
[2024-12-22] MEDS: IBUPROFEN 600 MG TAB PO PRN (15:35)
[2024-12-22] MEDS: ACETAMINOPHEN 325 MG TAB PO PRN (16:12)
--- NOTE | 2024-12-23 06:22 | Obstetrical Progress Note ---
Date of Service December 23, 2024 Assessment & Plan (1) Encounter for care and examination after delivery: Plan Pain control with tylenol and ibuprofen Continue stool softeners Encourage ambulation and breast feeding Discharge today or 12/24 per pt preference Admission and Anticipated Discharge Date Admission Date: December 21, 2024 Supervising Physician Co-Signing Physician Notes Patient seen with resident and agree with the above findings and plan. Stable for discharge if preferred. Doing well Subjective Pt is 34 yo post- day 1 s/p at 39w6d. complicated by GBS+ abd AMA Ambulation:In room Voiding:voiding normally Passing gas: yes BM: no Diet tolerance:regular diet Lochia:bloody, no clots Feeding type: breast Current pain level: 0-3 /10 improved with ibuprofen Resting comfortably this morning in NAD. Denies PIÑA, CP, SOB, N/V/D, LE pain/swelling. Review of Systems Review of Systems: As per HPI Physical Exam Constitutional: WD/WN, vitals as above Respiratory: normal respiratory effort, lungs clear to auscultation Cardiovascular: RRR, no murmur, no edema Gastrointestinal (Abdomen): normal bowel sounds, soft, nontender, no hepatosplenomegaly Uterine fundus firm and at 1 cm above level of umbilicus Neurologic: PERRL, EOMI, accommodation nl, no face palsy, no dysarthria Moving all 4 extremities on command Psychiatric: A+Ox3, euthymic affect Results & Data Vital Signs (Past 12 Hours) Vital Signs Temp Pulse Pulse Resp BP Pulse Ox O2 Del Method 12/23/24 04:30 36.6 C 79 16 114/68 97 Room Air 12/22/24 23:10 36.6 C 68 16 108/67 96 Room Air 12/22/24 19:40 36.4 C L 80 16 113/71 97 Room Air Resident Activity Tracking Resident Involvement: Resident Care Provided Care Provided: Adult Hospital Medicine
[2024-12-23] MEDS: bisacodyL 5 MG TABEC PO SCH (20:54)
[2024-12-23 21:48] VITALS: RESP 16
[2024-12-24] MEDS ORDERED: bisacodyL 10 MG SUPP PR PRN (05:01)
--- NOTE | 2024-12-24 06:12 | Obstetrical Progress Note ---
Date of Service December 24, 2024 Assessment & Plan (1) Encounter for care and examination after delivery: Plan Pt doing well and ready to discharge to home Pain control with tylenol and ibuprofen Continue stool softeners Encourage ambulation and breast feeding Discharge today Admission and Anticipated Discharge Date Admission Date: December 21, 2024 Supervising Physician Co-Signing Physician Notes Resident Physician Supervision Note: I interviewed and examined the patient. Discussed with Dr. Blake and agree with findings and plan as documented in the note. Any exceptions or clarifications are listed here: [None] Documented By: Alicia Trujillo MD, FACOG Subjective Pt is 34 yo post- day 2 s/p at 39w6d. complicated by GBS+ and AMA Ambulation:In room Voiding:voiding normally Passing gas: yes BM: no Diet tolerance:regular diet Lochia:bloody, no clots Feeding type: breast Current pain level: 0-3 /10 improved with ibuprofen Resting comfortably this morning in NAD. Denies PIÑA, CP, SOB, N/V/D, LE pain/swelling. Review of Systems Review of Systems: As per HPI Physical Exam Constitutional: WD/WN, vitals as above Respiratory: normal respiratory effort, lungs clear to auscultation Cardiovascular: RRR, no murmur, no edema Gastrointestinal (Abdomen): normal bowel sounds, soft, nontender, no hepatosplenomegaly Neurologic: PERRL, EOMI, accommodation nl, no face palsy, no dysarthria Psychiatric: A+Ox3, euthymic affect Results & Data Vital Signs (Past 12 Hours) Vital Signs Temp Pulse Resp BP Pulse Ox O2 Del Method 12/24/24 00:30 36.4 C L 76 16 104/64 96 Room Air 12/23/24 20:50 36.6 C 82 16 109/66 95 Room Air Resident Activity Tracking Resident Involvement: Resident Care Provided Care Provided: Adult Hospital Medicine
[2024-12-24 09:51] VITALS: BP 119/65; TEMP 97.9; O2SAT 97
[2024-12-24 09:53] VITALS: PULSE 80
== END 2024-12-24 10:56 | disposition home or self-care (01) | DRG 807 ==
LOC: OPB 20:53 → 4S1 20:54 → 4E1 12-22 07:45